=== PATIENT | female | born 1970 | race African-American/Black ===

== ENCOUNTER 2016-09-24 02:56 | Emergency (ER) | payer OTHER ==
[~2016-09-24 02:56] MED LIST: AMOXICILLIN PO; ASPIRIN PO; BACTRIM DS TABL1 TA2 PO; CERTAGEN PO; CIPRO PO; CLINDAMYCIN HC300 MG PO; COLACE PO; COUMADIN PO; ERYC250 MG PO; KEFLEX PO; LORTAB 5/500 TA1 TA1 PO; MEDROL PO; MILK OF MAGNESIA PO; NICOTINE T1 PATCH .2 TOP; PRILOSEC PO; TYLENOL #3 PO; VICODIN 5/500 T1 TAB PO; ZYRTEC PO
[2016-09-24 03:01] LABS: INR 2.9; PARTIAL THROMBOPLASTIN TIME 34.1 SECONDS (23.5-31.3); PROTHROMBIN TIME (PATIENT) 32.1 SECONDS (9.6-11.5)
== END 2016-09-24 03:41 | disposition home or self-care (01) ==
LOC: CED 02:56
PROVIDERS: Nurse Practitioner Family
DX: K11.20 Sialoadenitis, unspecified (principal); E78.5 Hyperlipidemia, unspecified; I25.2 Old myocardial infarction; J45.909 Unspecified asthma, uncomplicated; I10 Essential (primary) hypertension; I48.91 Unspecified atrial fibrillation; M32.9 Systemic lupus erythematosus, unspecified; F17.210 Nicotine dependence, cigarettes, uncomplicated; Z95.1 Presence of aortocoronary bypass graft; Z98.890 Other specified postprocedural states; Z91.040 Latex allergy status; Z88.1 Allergy status to other antibiotic agents
CPT/HCPCS: 36415; 85610; 85730; 99283